=== PATIENT | female | born 1990 | race Caucasian/White ===

== ENCOUNTER 2016-11-10 15:16 | Emergency (ER) | payer OTHER ==
[2016-11-10] MEDS ORDERED: METOCLOPRAMIDE HCL INJECTION 10 MG/2 ML VIAL IVPUSH ONE (15:35)
[2016-11-10 15:47] VITALS: BP 117/71; PULSE 69; TEMP 98.1; BMI 19.8
--- NOTE | 2016-11-10 15:57 | PDOC ---
History of Present Illness <Kevin Castro - Last Filed: 11/10/16 16:20> - General History Source: Patient Exam Limitations: No Limitations - History of Present Illness Initial Comments: 11/10/16 16:46 The patient is a 26 year old female, with a significant past medical history of anxiety and mild bipolar disorder, who presents to the emergency department with a headache onset today while she was driving. She describes her headache as ranging from being very severe when she was driving in the back of her head lasting approximately 1-2 min before resolving. She states that her headache is localized in the back of her head bilaterally. She denies taking any medications for the pain. She also reports mild blurry vision associated with her chief complaint, which has resolved. She denies any loss of consciousness. She states that she had a similar headache 2 weeks ago, for which she took Advil , resolving the pain, the total duration of her headache then was approx 1 min.. She notes that she has been stressing due to finals at school, has not been keeping herself well hydrated and has not been sleeping adequately due to finals. Pt states she last had similar headaches during final periods during high school, but she looked up on the phone when to go to the ER for headaches and since her headache was severe came to the ED. Pt states her headache has since resolved and currently feels fine. No associated numbness/tingling/ weakness, dizziness, n/v, ataxia. The patient denies chest pain, shortness of breath and dizziness. Denies fever, chills, nausea, vomit, diarrhea and constipation. Denies dysuria, frequency, urgency and hematuria. Allergies: None Past surgical history: None reported Social history: No alcohol, tobacco or drug use reported <Nikos Moore - Last Filed: 11/10/16 16:47> - General Chief Complaint: Headache Stated Complaint: HEADACHE Time Seen by Provider: 11/10/16 15:23 Past History - Past Medical History Psychiatric Problems: Yes (BIPOLAR) Thyroid Disease: Yes - Psycho/Social/Smoking Cessation Hx Anxiety: No Suicidal Ideation: No Smoking History: Never smoked Have you smoked in the past 12 months: No Information on smoking cessation initiated: No Hx Alcohol Use: No Drug/Substance Use Hx: No Substance Use Type: None <Kevin Castro - Last Filed: 11/10/16 16:20> <Nikos Moore - Last Filed: 11/10/16 16:47> - Past Medical History Allergies/Adverse Reactions: Allergies Allergy/AdvReac Type Severity Reaction Status Date / Time No Known Allergies Allergy Verified 11/10/16 15:17 Home Medications: Ambulatory Orders LamoTRIgine [LaMICtal] 75 mg PO DAILY 11/10/16 Levothyroxine [Synthroid -] 75 mcg PO DAILY 11/10/16 Liothyronine Sodium [Cytomel] 5 mcg PO DAILY 11/10/16 Methylphenidate HCl [Concerta] 36 mg PO DAILY 11/10/16 Norgestimate-Ethinyl Estradiol [Ortho Tri-Cyclen Lo Tablet] 1 each PO DAILY Review of Systems - Review of Systems Able to Perform ROS?: Yes Comments:: 11/10/16 16:46 CONSTITUTIONAL: Reported: Generalized weakness. No reported: Fever, Chills, Diaphoresis, Malaise, Loss of Appetite HEENT: Reported; Mild blurriness at periphery of vision with headache No reported: Rhinorrhea, Nasal Congestion, Throat Pain, Throat Swelling, Difficulty Swallowing, Mouth Swelling, Ear Pain, Eye Pain CARDIOVASCULAR: No reported: Chest Pain, Syncope, Palpitations, Irregular Heart Rate, Lightheadedness, Peripheral Edema RESPIRATORY: No reported: Cough, Shortness of Breath, SOB with Exertion, Orthopnea, Wheezing , Stridor, Hemoptysis GASTROINTESTINAL: No reported: Abdominal pain, Abdominal Distension, Nausea, Vomiting, Diarrhea, Constipation, Melena, Hematochezia GENITOURINARY: No reported: Dysuria, Frequency, Urgency, Hesitancy, Flank Pain, Genital Pain MUSCULOSKELETAL: No reported: Myalgia, Arthralgia, Joint Swelling, Back pain, Neck Pain SKIN: No reported: Rash, Itching, Pallor HEMEATOLOGIC/IMMUNOLOGIC: No reported: Easy Bleeding, Easy Bruising, Lymphadenopathy, Frequent infections ENDOCRINE: No reported: Unexplained Weight Gain, Unexplained Weight Loss, Heat Intolerance , Cold Intolerance NEUROLOGIC: Reported: Headache No reported: Focal Weakness, Paresthesias, Vertigo, Lightheadedness, Unsteady Gait, Seizure, Mental Status Changes, Incontinence PSYCHIATRIC: No reported: Anxiety, Depression <Nikos Moore - Last Filed: 05/15/17 16:47> *Physical Exam - Vital Signs Last Vital Signs Temp Pulse Resp BP Pulse Ox 98.1 F 69 18 117/71 100 11/10/16 15:16 11/10/16 15:16 11/10/16 15:16 11/10/16 15:16 11/10/16 15:16 <GloriaKevin enamorado - Last Filed: 11/10/16 16:20> - Vital Signs Last Vital Signs Temp Pulse Resp BP Pulse Ox 98.1 F 69 18 117/71 100 11/10/16 15:16 11/10/16 15:16 11/10/16 15:16 11/10/16 15:16 11/10/16 15:16 - Physical Exam Comments: 11/10/16 16:46 GENERAL: The patient is awake, alert, and fully oriented, Nontoxic - in no acute distress. HEAD: Normocephalic, atraumatic. EYES: extraocular movements intact, sclera anicteric, conjunctiva clear. ENT: Normal voice, Moist mucous membranes. NECK: Normal range of motion, supple LUNGS: Breath sounds equal, clear to auscultation bilaterally. No wheezes, no rhonchi, no rales. HEART: Regular rate and rhythm, without murmur, rub or gallop. ABDOMEN: Soft, nontender, normoactive bowel sounds. No guarding, no rebound.No CVA tenderness EXTREMITIES: Normal range of motion, no edema. No clubbing or cyanosis. No cords, erythema, or tenderness. PSYCH: Normal mood, normal affect. SKIN: Warm, Dry, normal turgor NEURO: Mental status: The patient is oriented x3. Cranial nerves: Cranial nerves II through XII are intact Motor: The upper extremities are 5 over 5 in all muscle groups. The lower extremities are 5 over 5 in all muscle groups. Negative pronator drift Sensation: Sensation is intact to light touch throughout. romberg negative Cerebellar: Fxoghz-wqdqcz-fqwy is normal in both upper extremities. Heel-knee- pride is normal in both lower extremities. rapid alternating movements are normal. Reflexes: 2+ and symmetric in the upper and lower extremities. Gait: Normal. Heel and toe walking are normal. Tandem gait is normal. <Nikos Moore - Last Filed: 11/10/16 16:47> ED Treatment Course - Medications Given in the ED: ED Medications Discontinued Medications Generic Name Dose Route Start Last Admin Trade Name Brody PRN Reason Stop Dose Admin Metoclopramide HCl 10 mg 11/10/16 15:35 11/10/16 16:32 Reglan Injection - IVPUSH 11/10/16 15:36 Not Given ONCE ONE <Nikos Moore - Last Filed: 11/10/16 16:47> Medical Decision Making - Medical Decision Making 11/10/16 16:21 26y F hx of anxity, bipolar disorder presents with headache, pt states she was driving when she felt a headache lasting for 1 min prior to resolving. pt endorses having antoher episode of headaceh approx 2 weeks ago that resolved after a few min and after taking motrin. pts tates her headache has resolved and tehrew as no associated syncope, n/v, diaphoresis, neck pain/stiffness, fever/chills, vision changes. pts physical and neuro exam are normal. pt does endorse being under alot of stress due to finals and having her sleep desrupted. suspect likely tension heaadche considered SAH but unlikely based on clinical history and exam and time course. pt declines pain meds will dc pt with outpatient manageemnt and PMD /neuro fu erturn percautions were discussed A portion of this note was documented by scribe services under my direction. I have reviewed the details of the note, within reason, and agree with the documentation with the following case summary and management plan written by me <Kevin Castro - Last Filed: 11/10/16 16:20> *DC/Admit/Observation/Transfer - Discharge Dispostion Admit: No <Kevin Castro - Last Filed: 11/10/16 16:20> - Attestations Scribe Attestion: 11/10/16 16:47 Documentation prepared by Nikos Moore, acting as medical psychotherapist for Kevin Castro MD <Nikos Moore - Last Filed: 11/10/16 16:47> Diagnosis at time of Disposition: Tension headache - Discharge Dispostion Disposition: HOME Condition at time of disposition: Improved - Referrals Referrals: Álvaro Anglin MD [Staff Physician] - - Patient Instructions Printed Discharge Instructions: DI for Hormonal and Tension Headaches Additional Instructions: Return to the emergency department immediately with ANY new, persistent or worsening symptoms including worsening headache, vision changes, numbness/ tingling/weakness, persistent nausea and vomiting or any other concerns. Make sure you are getting adaqute sleep and hydration. You MUST call and follow up with your doctor tomorrow for further evaluation of your symptoms. Your emergency department visit is not complete without a followup with your doctor for reevaluation. Results were discussed with you. Please make sure your doctor reviews the results of your emergency evaluation. If you had any xrays during your visit, it was read preliminarily by myself, a Radiologist will review it and if there are any additional findings we will call you.
== END 2016-11-10 16:35 | disposition home or self-care (01) ==
LOC: FER 15:16
DX: G44.209 Tension-type headache, unspecified, not intractable (principal); F41.9 Anxiety disorder, unspecified; F31.9 Bipolar disorder, unspecified
CPT/HCPCS: 99281-25